=== PATIENT | male | born 1950 | race Hispanic/Latino ===

== ENCOUNTER 2020-10-17 08:29 | Outpatient (CLI) | payer MEDICARE ==
[2020-10-18 01:17] LABS: SARS-CoV-2 PCR by NAA Not Detected (NotDetected)
== END 2020-10-17 08:30 | disposition home or self-care (01) ==
LOC: CSHLAB 08:29
PROVIDERS: ATTEND Internal Medicine Gastroenterology
DX: Z20.822 Contact with and (suspected) exposure to COVID-19 (principal)
CPT/HCPCS: 87635; U0003; U0005

== ENCOUNTER 2020-10-20 05:39 | Day surgery (SDC) | payer MEDICARE ==
[2020-10-19 15:54] VITALS: BMI 30.7
[2020-10-20] MEDS ORDERED: Lidocaine 1% MPF 2 ML VIAL ONE (06:34)
[2020-10-20] MEDS ORDERED: PROPOFOL 40 ML ONE (07:41)
[2020-10-20] MEDS ORDERED: Midazolam HCl 2 mg/2 ml Vial ONE (07:41)
== END 2020-10-20 09:15 | disposition home or self-care (01) ==
LOC: CSHSDC 05:39
PROVIDERS: ATTEND Internal Medicine Gastroenterology
PROC: 0D758ZZ Dilation of Esophagus, Via Natural or Artificial Opening Endoscopic (ICD-10-PCS; principal; 2020-10-20)
DX: R13.10 Dysphagia, unspecified (principal); K29.30 Chronic superficial gastritis without bleeding; K44.9 Diaphragmatic hernia without obstruction or gangrene; I25.10 Atherosclerotic heart disease of native coronary artery without angina pectoris; I10 Essential (primary) hypertension; E11.9 Type 2 diabetes mellitus without complications; E78.5 Hyperlipidemia, unspecified; E03.9 Hypothyroidism, unspecified; G47.30 Sleep apnea, unspecified; Z95.1 Presence of aortocoronary bypass graft; Z95.5 Presence of coronary angioplasty implant and graft
CPT/HCPCS: 36416; 88305; J2250; J2704